=== PATIENT | female | born 1965 | race Caucasian/White ===

== ENCOUNTER 2021-04-24 10:49 | Inpatient (IN) ==
[2021-04-24] MEDS ORDERED: Naloxone 0.4 MG/ML INJ IVP PRN (13:00)
[2021-04-24] MEDS ORDERED: Acetaminophen 325 MG TABLET PO PRN (13:00)
[2021-04-24] MEDS ORDERED: Dextrose Gel 15 GM/37.5 ML TUBE PO PRN ×2 (13:00)
[2021-04-24] MEDS ORDERED: Ondansetron 4 MG/2 ML VIAL IVP PRN (13:00)
[2021-04-24] MEDS ORDERED: *HR* Dextrose 50 % in Water (Syg) 50 ML SYRINGE IVP PRN (13:00)
[2021-04-24] MEDS ORDERED: D5% in Water 1,000 ML IVC PRN (13:00)
[2021-04-24] MEDS ORDERED: *HR* HYDROcodone/Acet 5/325 mg TABLET PO PRN (13:00)
[2021-04-24] MEDS ORDERED: Vancomycin 2,000 MG/520 ML IV.SOLN IVPB ONE (14:00)
[2021-04-24 14:12] LABS: Basophils % 0.4 %; Eosinophils # 0.1 K/mcL (0.0-0.6); Eosinophils % 1.3 %; Hematocrit 43.2 % (35.3-44.9); Hemoglobin 14.3 g/dL (11.5-15.4); Immature Granulocytes % 0.2 % (0-4); Lymphocytes % 27.4 %; Mean Corpuscular HGB Conc 33.1 g/dL (31.6-35.5); Mean Corpuscular Hemoglobin 28.9 pg (28.0-33.3); Mean Corpuscular Volume 87.3 fL (83.0-100.0); Mean Platelet Volume 10.4 fL (9.4-12.4); Monocytes # 0.7 K/mcL (0.0-1.3); Neutrophils # 7.2 K/mcL (1.6-8.9); Platelet Count 304 K/mcL (140-400); Red Blood Count 4.95 M/mcL (3.82-4.97); Red Cell Distribution Width 13.5 % (11.5-14.5); Segmented Neutrophils % 64.7 %; White Blood Count 11.1 K/mcL (4.3-11.1)
[2021-04-24 14:19] LABS: INR 1.1; Prothrombin Time 12.3 Seconds (9.4-12.1)
[2021-04-24 14:22] LABS: Activated Partial Thrombo Time 34.4 Seconds (26.0-36.0)
[2021-04-24 14:31] LABS: Albumin 4.1 g/dL (3.5-5.7); Albumin/Globulin Ratio 1.5 (1.1-2.2); Bilirubin,Direct 0.1 mg/dL (0.0-0.2); Bilirubin,Indirect 0.2 mg/dL (0.0-1.0); Bilirubin,Total 0.3 mg/dL (0.3-1.0); Globulin 2.8 g/dL (2.4-3.5); Total Protein 6.9 g/dL (6.4-8.9)
[2021-04-24 14:37] LABS: BUN/Creatinine Ratio 17 (6-26); Blood Urea Nitrogen 14 mg/dL (6-20); Calcium 9.3 mg/dL (8.6-10.3); Carbon Dioxide 25 mEq/L (23-29); Chloride 103 mEq/L (98-107); Glucose 263 mg/dL (70-105); Osmolality,Calculated 286 (280-300); Potassium 3.9 mEq/L (3.5-5.1); Sodium 133 mEq/L (136-145); eGFR For African Americans > 60 (> 60); eGFR For Non-African Americans > 60 (> 60)
[2021-04-24 14:40] LABS: Estimated Average Glucose 249 mg/dl; Hemoglobin A1C 10.3 %
[2021-04-24] MEDS: Piperacillin/Tazobactam 3.375 GM in 0.9 % Sodium Chloride Mini Bag 100 ML IVPB SCH ×2 (15:37→23:29)
[2021-04-24] MEDS: Insulin LISPRO 300 UNITS/3 ML VIAL SUBQ SCH (17:42)
[2021-04-24] MEDS: *HR* Heparin 5,000 UNIT/ML VIAL SQ SCH (17:43)
[2021-04-24] MEDS ORDERED: Insulin LISPRO 300 UNITS/3 ML VIAL SUBQ SCH (21:00)
[2021-04-25] MEDS ORDERED: Vancomycin 1,750 MG/517.5 ML IV.SOLN IVPB SCH (04:00)
[2021-04-25] MEDS: *HR* Heparin 5,000 UNIT/ML VIAL SQ SCH (04:47)
[2021-04-25] MEDS: Piperacillin/Tazobactam 3.375 GM in 0.9 % Sodium Chloride Mini Bag 100 ML IVPB SCH ×2 (08:05→15:01)
[2021-04-25] MEDS: Insulin LISPRO 300 UNITS/3 ML VIAL SUBQ SCH ×3 (08:06→16:47)
[2021-04-25] MEDS ORDERED: CeFAZolin Syr 3,000MG/30 ML 3,000 MG/30 ML SYRINGE IVPB ONE (11:07)
[2021-04-25] MEDS ORDERED: Ringers Solution, Lactated 1,000 ML IVC SCH (11:15)
[2021-04-25] MEDS ORDERED: Lidocaine -MPF 2% 5 ML VIAL ONE ×2 (11:17→12:48)
[2021-04-25] MEDS ORDERED: *HR* Propofol 200 MG/20 ML VIAL IVP ONE ×2 (11:17→12:49)
[2021-04-25] MEDS ORDERED: *HR* Midazolam HCl 2 MG/2 ML VIAL ONE ×2 (11:17→12:49)
[2021-04-25] MEDS ORDERED: Ondansetron 4 MG/2 ML VIAL ONE ×2 (11:17→12:48)
[2021-04-25] MEDS ORDERED: *HR* FentaNYL (PF) 100 MCG/2 ML VIAL ONE ×2 (11:17→12:48)
[2021-04-25] MEDS ORDERED: Lidocaine/EPI 1:100k 1% 30 ML VIAL ONE (11:43)
[2021-04-25] MEDS ORDERED: Dextrose Gel 15 GM/37.5 ML TUBE PO PRN ×2 (14:20)
[2021-04-25] MEDS ORDERED: *HR* Dextrose 50 % in Water (Syg) 50 ML SYRINGE IVP PRN (14:20)
[2021-04-25] MEDS ORDERED: D5% in Water 1,000 ML IVC PRN (14:20)
[2021-04-25] MEDS ORDERED: Naloxone 0.4 MG/ML INJ IVP PRN (14:21)
[2021-04-25] MEDS ORDERED: *HR* HYDROcodone/Acet 5/325 mg TABLET PO PRN (14:21)
[2021-04-25] MEDS ORDERED: Vancomycin 2,000 MG/520 ML IV.SOLN IVPB ONE (15:00)
[2021-04-25] MEDS ORDERED: DAPTOmycin 550 MG in 0.9 % Sodium Chloride 100 ML IVPB SCH (15:00)
[2021-04-25] MEDS ORDERED: Metoclopramide 10 MG/2 ML VIAL IVP ONE (17:01)
[2021-04-25] MEDS: Acetaminophen 325 MG TABLET PO PRN (20:47)
[2021-04-26] MEDS: Piperacillin/Tazobactam 3.375 GM in 0.9 % Sodium Chloride Mini Bag 100 ML IVPB SCH ×3 (00:29→16:06)
[2021-04-26] MEDS: Acetaminophen 325 MG TABLET PO PRN ×3 (04:40→21:09)
[2021-04-26] MEDS: Insulin LISPRO 300 UNITS/3 ML VIAL SUBQ SCH ×3 (09:35→17:11)
[2021-04-26] MEDS: Vancomycin 1,750 MG/517.5 ML IV.SOLN IVPB SCH (14:10)
[2021-04-26] MEDS ORDERED: methylPREDNISolone 125 MG/2 ML VIAL IVP ONE (14:45)
[2021-04-26] MEDS: Cefepime HCl 2,000 MG in 0.9 % Sodium Chloride Mini Bag 100 ML IVPB SCH (18:05)
[2021-04-26] MEDS ORDERED: Insulin DETEMIR 100 UNIT/ML X5UNITS SUBQ SCH (21:00)
[2021-04-27 03:23] LABS: eGFR For African Americans > 60 (> 60); eGFR For Non-African Americans > 60 (> 60)
[2021-04-27] MEDS: Vancomycin 1,750 MG/517.5 ML IV.SOLN IVPB SCH ×2 (03:46→13:24)
[2021-04-27] MEDS: Acetaminophen 325 MG TABLET PO PRN (07:14)
[2021-04-27] MEDS: Cefepime HCl 2,000 MG in 0.9 % Sodium Chloride Mini Bag 100 ML IVPB SCH ×2 (07:14→18:37)
[2021-04-27] MEDS: Insulin LISPRO 300 UNITS/3 ML VIAL SUBQ SCH ×3 (09:16→18:06)
[2021-04-27] MEDS: *HR* HYDROmorphone 2 MG/ML SYRINGE IVP PRN (15:59)
[2021-04-27] MEDS: Insulin DETEMIR 100 UNIT/ML X5UNITS SUBQ SCH (19:46)
[2021-04-28 00:25] LABS: Hematocrit 38.4 % (35.3-44.9); Mean Corpuscular Hemoglobin 28.7 pg (28.0-33.3); Mean Corpuscular Volume 89.5 fL (83.0-100.0); Mean Platelet Volume 10.4 fL (9.4-12.4); Platelet Count 240 K/mcL (140-400); Red Blood Count 4.29 M/mcL (3.82-4.97); Red Cell Distribution Width 14.2 % (11.5-14.5); White Blood Count 13.1 K/mcL (4.3-11.1)
[2021-04-28] MEDS: Vancomycin 1,750 MG/517.5 ML IV.SOLN IVPB SCH ×2 (00:26→12:31)
[2021-04-28 00:30] LABS: Hemoglobin 12.3 g/dL (11.5-15.4)
[2021-04-28 00:40] LABS: BUN/Creatinine Ratio 29 (6-26); Blood Urea Nitrogen 26 mg/dL (6-20); Calcium 8.6 mg/dL (8.6-10.3); Carbon Dioxide 24 mEq/L (23-29); Chloride 103 mEq/L (98-107); Glucose 257 mg/dL (70-105); Osmolality,Calculated 292 (280-300); Potassium 3.9 mEq/L (3.5-5.1); Sodium 134 mEq/L (136-145); eGFR For African Americans > 60 (> 60); eGFR For Non-African Americans > 60 (> 60)
[2021-04-28] MEDS: Cefepime HCl 2,000 MG in 0.9 % Sodium Chloride Mini Bag 100 ML IVPB SCH ×2 (05:30→17:34)
[2021-04-28] MEDS: Acetaminophen 325 MG TABLET PO PRN ×2 (10:04→23:59)
[2021-04-28] MEDS: Insulin LISPRO 300 UNITS/3 ML VIAL SUBQ SCH ×3 (10:05→17:34)
[2021-04-28] MEDS: *HR* HYDROmorphone 2 MG/ML SYRINGE IVP PRN (15:40)
[2021-04-28] MEDS: Insulin DETEMIR 100 UNIT/ML X5UNITS SUBQ SCH (19:58)
[2021-04-29] MEDS: Vancomycin 1,750 MG/517.5 ML IV.SOLN IVPB SCH ×2 (00:56→13:28)
[2021-04-29] MEDS: Cefepime HCl 2,000 MG in 0.9 % Sodium Chloride Mini Bag 100 ML IVPB SCH (05:52)
[2021-04-29] MEDS: Insulin LISPRO 300 UNITS/3 ML VIAL SUBQ SCH ×3 (08:21→17:13)
[2021-04-29] MEDS ORDERED: Fluconazole 100 MG TABLET PO ONE (11:01)
[2021-04-29] MEDS: Nystatin POWDER 30 GM BOTTLE TP SCH ×2 (14:20→21:08)
[2021-04-29] MEDS: *HR* HYDROmorphone 2 MG/ML SYRINGE IVP PRN (14:22)
[2021-04-29] MEDS: Ondansetron 4 MG/2 ML VIAL IVP PRN (15:52)
[2021-04-29] MEDS: cefTRIAXone 2,000 MG in 0.9 % Sodium Chloride Mini Bag 100 ML IVPB SCH (17:05)
[2021-04-29] MEDS: Insulin DETEMIR 100 UNIT/ML X5UNITS SUBQ SCH (21:08)
[2021-04-30] MEDS: Acetaminophen 325 MG TABLET PO PRN ×2 (00:49→07:39)
[2021-04-30] MEDS: Vancomycin 1,750 MG/517.5 ML IV.SOLN IVPB SCH ×2 (01:19→12:48)
[2021-04-30] MEDS: cefTRIAXone 2,000 MG in 0.9 % Sodium Chloride Mini Bag 100 ML IVPB SCH (07:39)
[2021-04-30] MEDS: Insulin LISPRO 300 UNITS/3 ML VIAL SUBQ SCH ×2 (07:40→12:10)
[2021-04-30] MEDS: Nystatin POWDER 30 GM BOTTLE TP SCH (07:40)
[2021-04-30] MEDS: *HR* HYDROmorphone 2 MG/ML SYRINGE IVP PRN (10:09)
[2021-04-30 10:24] VITALS: BP 144/82; PULSE 100; TEMP 97.7; O2SAT 97
[2021-04-30] MEDS: Ondansetron 4 MG/2 ML VIAL IVP PRN (10:51)
== END 2021-04-30 16:21 | disposition home health service (06) | DRG 629 ==
LOC: 3BNU → SUATTDRO 10:53
PROVIDERS: ADMIT Internal Medicine; ATTEND Registered Nurse